=== PATIENT | female | born 1945 | race Hispanic/Latino ===

== ENCOUNTER 2019-08-26 08:51 | Outpatient (AMBR) | payer MEDICARE, MEDICAID, SELFPAY ==
--- NOTE | 2019-08-26 10:31 | PT.OIERPT ---
PT OP Initial Eval Patient Information Visit Reasons: post op right knee Medical Diagnosis: Z47.1; Z96.651 Treatment Dx #1: Right Knee Mobility Deficits Treatment Dx #2: Right Knee Weakness Start of Care: 08/26/19 Date of Onset: 07/14/19 Initial Assessment Subjective Pt is a 74 y/o female s/p right TKA 07/14/19 secondary to knee OA. Pt still has knee pain (6/10) with walking. Pt has limitation with standing, squatting, lifting, walking, chores, self care, and recreational activities Objective Right Knee AROM: -15 deg to 82 deg Right Knee MMTs Quads: 3-/5 Hs: 3-/5 Right Hip MMTs Glute Med: 3/5 Glute Max: 3/5 SLS: unable Assessment Pt demonstrate left knee mobility deficits with weakness s/p TKA leading to decline function. Pt will benefit from physical therapy to increase strength, mobility, and work on ambulation. 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 2) Increase knee flexion AROM to 110 deg in 12 wks to be able to perform squatting activities 3) Increase knee MMTs to 4/5 in 12 wks to be able to perform stairs/steps 4) Increase hip MMTs to 4-/5 in 12 wks to be able to perform ambulation with single point cane 5) Decrease knee pain to 2/10 in 12 wks to be able to perform self care activities 6) Indep with HEP Treatment Plan 1) Manual Therapy 2) Therapeutic Activities 3) Therapeutic Exercises 4) Modalities (ice, heat) 5) Gait Training 6) Balance Training Frequency and Duration 2 x wk for 12 wks Certification Dates: 08/26/19 to 11/26/19 Office Procedures PT Procedures PT Date of Service: 08/26/19 OP PT Eval Mod Complex 30 minutes: Yes
== END 2019-09-09 23:59 | disposition home or self-care (01) ==
PROVIDERS: PCP Family Medicine; Referring Provider Family Medicine; Visit Provider Orthopaedic Surgery
DX: Z47.1 Aftercare following joint replacement surgery (principal); Z96.651 Presence of right artificial knee joint; R53.1 Weakness; M25.561 Pain in right knee; R26.2 Difficulty in walking, not elsewhere classified
CPT/HCPCS: 97162